=== PATIENT | female | born 1995 | race Caucasian/White ===

== ENCOUNTER 2018-11-13 17:40 | Inpatient (IN) | payer BC ==
[2018-11-13] MEDS ORDERED: Nalbuphine* 10 MG/ML 1 ML VIAL IV ONE (18:52)
[2018-11-13] MEDS ORDERED: Dinoprostone* 10 MG VAG.SUPP VAGINAL STA (18:52)
[2018-11-13] MEDS ORDERED: Promethazine INJ(RESTRICTED)* 25 MG/ML 1 ML VIAL IV ONE (18:52)
[2018-11-13] MEDS ORDERED: Lidocaine 1%* 5 ML VIAL ONE (19:26)
--- NOTE | 2018-11-13 19:49 | PN ---
L&D Outpatient: Visit - Reproductive Information Estimated Due Date: 11/06/18 Gestational Age: 41 Weeks and 1 Days : 1 Para: 0 - Reason for Visit Visit Reason: IUP@41 weeks her for cervical ripening/induction of labor for postdates - Antepartal Records Antepartal Record: Reviewed, Complicated by: - Elevated BP - PEC labs and 24 hr urine WNL - Patient History Patient History Significant For: Migraine - menstrual Recurrent UTI Seasonal allergies Review of Systems CV Complaint: No Respiratory: Shortness of Breath: No Gastrointestinal: No Nausea/Vomiting, Normal Bowel Movement Genitourinary: No Dysuria, No Bleeding - bloody show, No Leaking Fluid Musculoskeletal: Back Pain, Contractions Neurological: No Headache, No Visual Changes Movement: Normal L&D Outpatient: Exam Vitals - Most Recent: Vital Signs: Temp Pulse Resp BP Pulse Ox 98.0 F 91 18 131/91 100 11/13/18 18:06 11/13/18 18:06 11/13/18 18:06 11/13/18 18:06 11/13/18 18:06 - Cervical Exam Cervical Exam: 1.5/80%/-1, vtx - Abdominal Exam Abdomen Exam: Non-Tender, Fundal Height Consistent with Dates - Membranes Membrane Status: Intact - Ultrasound/Biophysical Profile Ultrasound Status: Not Done EFM Findings - External Monitor Findings Baseline Heart Rate: 135 External Monitor Findings: Accelerations Present - prolonged accelerations , No Pattern of Variable or Late Decelerations, Variability Moderate Contractions: Irregular L&D Outpatient: Asses/Plan Assessment: IUP@41 weeks here for cervical ripening and an IOL for postdates GBS negative, O+ No evidence of metabolic acidemia Mild irregular contractions, with good resting tone IBOW, +bloody show BPs elevated 130s-140s/80s-90s (normal PEC labs 11/01/18) - Discharge Diagnosis Discharge Diagnosis: Supervision-Normal Preg, Post Dates Plan: Admit as Inpatient - Admit to inpatient for an induction of labor, Other - Plan: Cervidil overnight, nubain/phenergan as needed for pain, PEC labs
[2018-11-13 20:32] LABS: ABS Basophils 0.1 10^3/ul (0-0.2); ABS Eosinophils 0 10^3/ul (0-0.6); ABS Lymphocytes 1.7 10^3/ul (1.0-4.8); ABS Monocytes 0.5 10^3/ul (0-0.8); ABS Neutrophils 5.6 10^3/ul (1.5-7.7); ABS Nucleated RBC 0 10^3/ul; Eosinophil % 0.5 %; Hematocrit 32 % (35-47); Hemoglobin 10.6 g/dl (12.0-16.0); Mean Corpuscular HGB Conc 33 g/dl (31-36); Mean Corpuscular Hemoglobin 30 pg (27-31); Mean Corpuscular Volume 88 fL (80-97); Mean Platelet Volume 9.9 fL (7.4-10.4); Nucleated Red Blood Cells % 0.1; Platelet Count 211 10^3/ul (150-450); Red Blood Count 3.62 10^6/ul (4.00-5.40); Red Cell Distribution Width 14 % (10.5-15); White Blood Count 7.9 10^3/ul (3.5-10.8)
[2018-11-13 20:46] LABS: Albumin 3.7 g/dL (3.2-5.2); Albumin/Globulin Ratio 1.1 (1-3); BUN/Creatinine Ratio 13.4 (8-20); Calcium 8.9 mg/dL (8.6-10.3); EGFR Non-African American 109.1 (>60); Globulin 3.4 g/dL (2-4); Potassium 3.5 mmol/L (3.5-5.0); Total Bilirubin 0.3 mg/dL (0.2-1.0); Total Protein 7.1 g/dL (6.4-8.9); Uric Acid 4.9 mg/dL (2.3-6.6)
--- NOTE | 2018-11-14 02:15 | PN ---
Progress Note - Progress Note Date of Service: 11/14/18 Note: SOAP: S: Pt uncomfortable and breathing through contractions. Reports feeling very shaky. FOB sleeping at bedside O: 1.5/80%/-1, posterior Baseline 125, +accels, no decels, moderate variability ctx 2-4 Pt visibly shaking IBOW A: IUP@41+1 for cervical ripening/IOL for postdates VE unchanged No evidence of metabolic acidemia coupling/tripling, contractions >2mins P: Cervidil removed. Pt to take warm bath VE PRN Anticipate progression to active labor and
[2018-11-14] MEDS ORDERED: Nalbuphine* 10 MG/ML 1 ML VIAL IV PRN (05:31)
[2018-11-14] MEDS ORDERED: Promethazine INJ(RESTRICTED)* 25 MG/ML 1 ML VIAL IV PRN (05:32)
[2018-11-14] MEDS ORDERED: Lactated Ringers 1000 ML Bag* 1,000 ML IV ONE ×2 (07:18→12:00)
[2018-11-14] MEDS ORDERED: Buffered Lidocaine 1% SYRIN* 1 ML/SYRINGE INTRADERM ONE (07:18)
--- NOTE | 2018-11-14 07:25 | HP ---
General Information - Reason for Visit IUP@41+1 admitted for induction of labor - General Information Maternal Age: 23 Grav: 1 Para: 0 SAB: 0 IEA: 0 Estimated Due Date: 11/06/18 Determined By: LMP Gestational Age in Weeks/Days: 41+1 Maternal Blood Type and Rh: O Positive - Results this Serology/RPR Result: Non-Reactive Rubella Result: Immune HBsAg Result: Negative HIV Result: Negative GBS Culture Result: Negative Past Medical History Pertinent Past Medical History: See Records - Migraine (menstrual), Recurrent UTI Pertinent Past Surgical History: See Records - Bunionectomies Pertinent Family History: See Records - Father: RA; Mother: HTN Review of Systems Constitutional: Uncomfortable CV Complaint: No Respiratory: Shortness of Breath: No Gastrointestinal: No Nausea/Vomiting, Normal Bowel Movement Genitourinary: Bleeding - bloody show, No Dysuria, No Leaking Fluid Musculoskeletal: No Complaint, No Epigastric Pain, Contractions Neurological: No Headache, No Visual Changes Movement: Normal Exam Allergies/Adverse Reactions: Allergies banana Allergy (Verified 11/14/18 05:44) Swelling sulfamethoxazole [From Bactrim] Adverse Reaction (Verified 11/14/18 05:44) See Comment PHOTODERMATITIS PER MOTHER: "she got redder in her eczema areas" trimethoprim [From Bactrim] Adverse Reaction (Verified 11/14/18 05:44) See Comment PHOTODERMATITIS PER MOTHER: "she got redder in her eczema areas" ENVIRONMENTAL/SEASONAL HAYFEVER Allergy (Uncoded 02/10/16 10:23) ITCHY WATERY EYES, CONGESTION, SNEEZING Vital Signs 11/13/18 18:06 Temperature 98.0 F Pulse Rate 91 Respiratory 18 Rate Blood Pressure 131/91 (mmHg) O2 Sat by Pulse 100 Oximetry Lab Values - Entire Visit: Laboratory Tests 11/13/18 11/13/18 11/13/18 19:44 19:44 19:44 WBC RBC Hgb Hct MCV MCH MCHC RDW Plt Count MPV Neut % (Auto) Lymph % (Auto) [place] % (Auto) Eos % (Auto) Baso % (Auto) Absolute Neuts (auto) Absolute Lymphs (auto) Absolute Monos (auto) Absolute Eos (auto) Absolute Basos (auto) Absolute Nucleated RBC Nucleated RBC % Sodium 135 Potassium 3.5 Chloride 105 Carbon Dioxide 20 L Anion Gap 10 BUN 9 Creatinine 0.67 0.65 Est GFR ( Amer) 132.0 Est GFR (Non-Af Amer) 109.1 BUN/Creatinine Ratio 13.4 Glucose 99 Uric Acid 4.9 Calcium 8.9 Total Bilirubin 0.30 AST 24 ALT 10 Alkaline Phosphatase 116 H Total Protein 7.1 Albumin 3.7 Globulin 3.4 Albumin/Globulin Ratio 1.1 Urine Collection Time 24 Blood Type O Positive Antibody Screen Negative 11/13/18 19:44 WBC 7.9 RBC 3.62 L Hgb 10.6 L Hct 32 L MCV 88 MCH 30 MCHC 33 RDW 14 Plt Count 211 MPV 9.9 Neut % (Auto) 71.1 Lymph % (Auto) 21.0 [place] % (Auto) 6.6 Eos % (Auto) 0.5 Baso % (Auto) 0.8 Absolute Neuts (auto) 5.6 Absolute Lymphs (auto) 1.7 Absolute Monos (auto) 0.5 Absolute Eos (auto) 0 Absolute Basos (auto) 0.1 Absolute Nucleated RBC 0 Nucleated RBC % 0.1 Sodium Potassium Chloride Carbon Dioxide Anion Gap BUN Creatinine Est GFR ( Amer) Est GFR (Non-Af Amer) BUN/Creatinine Ratio Glucose Uric Acid Calcium Total Bilirubin AST ALT Alkaline Phosphatase Total Protein Albumin Globulin Albumin/Globulin Ratio Urine Collection Time Blood Type Antibody Screen - Measurements Height: 5 ft 5 in Weight: 190 lb Weight in lbs: [phone] Body Mass Index (BMI): 31.6 Pre- Weight: 150 lb Weight Gained This : 40 lbs and 0 ozs - Exam Breast: Breast Exam Deferred CVA: No CVA Tenderness Extremities: No Edema Heart: Normal Rhythm/Heart Sounds HEENT: No Significant Findings Lungs: Clear Bilaterally Rectal: Rectal Exam Deferred Reflexes: DTR 2+ Thyroid: No Thyromegaly - Abdominal Exam Abdomen Exam: Non-Tender - 40lbs weight gain; EFW by carlos ~8+ lbs - Ultrasound/Biophysical Profile Ultrasound Status: Not Done Targeted Exam Findings Estimated Weight: by carlos 8+ lbs Cervical Exam: 1cm, 2cm Effacement: Thin, 80% Station: -1 Presenting Part: Vertex Membrane Status: Intact Bleeding/Discharge: Bloody Show EFM Findings - External Monitor Findings Baseline Heart Rate: 135 External Monitor Findings: Accelerations Present, No Pattern of Variable or Late Decelerations, Variability Moderate, Baseline Stable Contractions: Irregular - q1.5-5 mins, 45-90 Seconds, >90 Seconds Assessment/Plan - Assessment , IUP@41+1 IOL for postdates GBS negative; O+ 1.5/80%/-1, vtx, posterior No evidence of metabolic acidemia Contractions palpate mild to moderate, good resting tone Initial BPs elevated, PEC labs WNL IBOW - Obstetrical Risk Factors Obstetrical Risk Factors: Post-Dates - Plan Plan: Induction, Admit - Anticipate Vaginal Delivery - Date/Time of Admission Date of Admission: 11/14/18 Time of Admission: 07:30
--- NOTE | 2018-11-14 08:42 | PN ---
Progress Note - Progress Note Date of Service: 11/14/18 Note: Slept a little after medication. contractions every 3-5 minutes Cervix: 4-5 cm/100%, vtx -1, bulging membranes FHTs: baseline 135, accels present, mod variability. Cat 1 Wants epidural when more uncomfortable Will observe for now, consider AROM or pitocin augmentation
[2018-11-14] MEDS ORDERED: OBEPIDURAL* 250 ML EPIDURAL ONE (11:23)
--- NOTE | 2018-11-14 11:26 | PN ---
Progress Note - Progress Note Date of Service: 11/14/18 Note: uncomfortable, requesting epidural Cervix: 6cm/100%, vtx 0/-1. Dr Garcia called, will do epidural
[2018-11-14] MEDS ORDERED: Sodium Citrate/Citric Acid* 15 ML UDC PO PRN (12:00)
[2018-11-14] MEDS ORDERED: Lactated Ringers 1000 ML Bag* 1,000 ML IV SCH (12:00)
[2018-11-14] MEDS ORDERED: Famotidine TAB* 20 MG PO PRN (12:00)
[2018-11-14] MEDS ORDERED: Phenylephrine IV* 40 MCG/ML 10 ML SYRINGE IV PUSH PRN ×2 (12:00)
[2018-11-14] MEDS ORDERED: EPHEDrine (Pressors)* 50 MG/ML VIAL IV PUSH PRN ×2 (12:00)
[2018-11-14] MEDS: OBEPIDURAL* 250 ML EPIDURAL SCH (12:16)
--- NOTE | 2018-11-14 13:42 | PN ---
Progress Note - Progress Note Date of Service: 11/14/18 Note: comfortable after epidural Contractions every 5 minutes FHT remains category 1 Cervix: 7-8cm/100%, vtx -1 AROM at 1335--clear fluid Will augment with pitocin prn
--- NOTE | 2018-11-14 17:08 | PN ---
Progress Note - Progress Note Date of Service: 11/14/18 Note: Has not needed pitocin. Contractions every 3-4 min Cervix: 9 cm with thicker anterior portion, 0 station Continues to make progress
[2018-11-14] MEDS ORDERED: Oxytocin in LR* 20 UNITS/1,000 ML BAG IVPB ONE (17:22)
[2018-11-14] MEDS: Oxytocin in LR* 20 UNITS/1,000 ML BAG IVPB SCH (17:28)
[2018-11-14] MEDS ORDERED: Acetaminophen TAB* 325 MG PO ONE (17:36)
[2018-11-14] MEDS ORDERED: Acetaminophen TAB* 325 MG ONE (17:38)
[2018-11-14] MEDS: Lactated Ringers 1000 ML Bag* 1,000 ML IV SCH ×3 (19:23→23:22)
--- NOTE | 2018-11-14 20:35 | PN ---
Progress Note - Progress Note Date of Service: 11/14/18 Note: Low dose pitocin started after last exam. Feeling pressure. Cervix: fully, vtx +2 Coached on pushing, may need to labor down
--- NOTE | 2018-11-14 21:06 | PN ---
Progress Note - Progress Note Date of Service: 11/14/18 Note: Pushing since 2024. FHT baseline now 180, with decreased variability. Afebrile. Dr. Donovan called, coming to evaluate. Will continue pushing.
--- NOTE | 2018-11-14 22:47 | PN ---
Progress Note - Progress Note Date of Service: 11/14/18 Note: CTSP, induction at 41 wks, now pushing for about 2 hours. FHR noted to be persistently in the 160-180s with decreasing variability over the past hour. Exam: C/C/0 to +1 with pushing. Per CNM, minimal descent over the past hour despite good effort. Pt also examined during a push. Head palpates OA. Discussed concern for status developing over the past hour, especially without descent. At this point, I recommend a C/S. After discussion, pt and family agree. We discussed the risks of surgery at length including bleeding, hemorrhage, transfusion, infection, organ injury, DVT, hysterectomy, and even . All questions answered and consent signed.
[2018-11-14] MEDS ORDERED: ceFOXitin 2 GM IVPREMIX* 2 GM/50 ML BAG ONE (22:50)
[2018-11-14] MEDS ORDERED: ceFOXitin 2 GM IVPREMIX* 2 GM/50 ML BAG IVPB ONE (23:00)
[2018-11-14] MEDS ORDERED: Chloroprocaine 3%* 20 ML VIAL ONE (23:23)
[2018-11-14] MEDS ORDERED: fentaNYL* 50 MCG/ML 2 ML VIAL (100 MCG VIAL) ONE (23:55)
[2018-11-15] MEDS ORDERED: Morphine PF AMP (0.5MG/ML)* 5 MG/10 ML AMP ONE (00:08)
[2018-11-15] MEDS ORDERED: Phenylephrine IV* 40 MCG/ML 10 ML SYRINGE ONE (00:12)
[2018-11-15] MEDS ORDERED: EPHEDrine (Pressors)* 50 MG/ML VIAL ONE (00:16)
[2018-11-15] MEDS ORDERED: Scopolamine 1.5 mg* PATCH ONE (00:18)
[2018-11-15] MEDS ORDERED: fentaNYL* 50 MCG/ML 2 ML VIAL (100 MCG VIAL) IV PRN (00:25)
[2018-11-15] MEDS ORDERED: Naloxone* 0.4 MG/ML 1 ML VIAL IV PRN ×2 (00:25→00:28)
[2018-11-15] MEDS ORDERED: oxyCODONE TAB* 5 MG TAB PO PRN ×2 (00:25→00:28)
[2018-11-15] MEDS ORDERED: PROCHLORPERAZINE INJ 5 MG/ML 2 ML VIAL IV PRN ×2 (00:25→00:28)
[2018-11-15] MEDS ORDERED: Ketorolac INJ* 30 MG/ML 1 ML VIAL IV PRN (00:25)
[2018-11-15] MEDS ORDERED: Acetaminophen IV 1GM/100ML * 1,000 MG/100 ML VIAL IVPB ONE (00:25)
[2018-11-15] MEDS ORDERED: Nalbuphine* 10 MG/ML 1 ML VIAL IV PRN (00:28)
[2018-11-15] MEDS ORDERED: Ondansetron INJ* 2 MG/ML VIAL IV PRN (00:28)
[2018-11-15] MEDS ORDERED: Witch Hazel PAD* JAR TOPICAL PRN (00:56)
[2018-11-15] MEDS ORDERED: Dibucaine 1% 28.35 GM TUBE PR PRN (00:56)
[2018-11-15] MEDS ORDERED: Lactated Ringers 1000 ML Bag* 1,000 ML IV SCH (01:00)
[2018-11-15] MEDS: Acetaminophen TAB* 325 MG PO SCH ×3 (01:13→16:59)
[2018-11-15] MEDS: Ketorolac INJ* 30 MG/ML 1 ML VIAL IV SCH ×4 (01:13→20:39)
[2018-11-15] MEDS: Lactated Ringers 1000 ML Bag* 1,000 ML IV SCH (01:49)
[2018-11-15] MEDS: Oxytocin in LR* 20 UNITS/1,000 ML BAG IVPB SCH ×2 (01:58→03:19)
[2018-11-15] MEDS ORDERED: Methylergonovine INJ* 0.2 MG/ML 1ML AMP IM ONE (03:06)
[2018-11-15] MEDS ORDERED: Methylergonovine INJ* 0.2 MG/ML 1ML AMP ONE (03:19)
[2018-11-15 07:03] LABS: Hematocrit 25 % (35-47); Hemoglobin 8.4 g/dl (12.0-16.0); Mean Corpuscular HGB Conc 34 g/dl (31-36); Mean Corpuscular Hemoglobin 30 pg (27-31); Mean Corpuscular Volume 88 fL (80-97); Mean Platelet Volume 9.3 fL (7.4-10.4); Platelet Count 155 10^3/ul (150-450); Red Blood Count 2.81 10^6/ul (4.00-5.40); Red Cell Distribution Width 15 % (10.5-15); White Blood Count 18.6 10^3/ul (3.5-10.8)
[2018-11-15 07:53] LABS: Immature Granulocytes 4 % (0-9); Lymphocytes % 2 %; Monocytes % 2 %; Neutrophil % 92 %
[2018-11-15 07:54] LABS: ABS Neutrophils 17.86 10^3/ul (1.5-7.7)
[2018-11-15] MEDS: Simethicone TAB* 80 MG TAB.CHEW PO SCH ×4 (08:11→21:05)
[2018-11-15] MEDS: Docusate CAP* 100 MG PO SCH ×3 (08:41→20:58)
[2018-11-15] MEDS: Ferrous Gluconate TAB* 324 MG TAB PO SCH ×2 (09:01→20:58)
--- NOTE | 2018-11-15 10:04 | OP ---
DATE OF OPERATION: 11/15/18 - ROOM #105 DATE OF : 95 SURGEON: Tanya Donovan MD [employer] ENGINEER: AALIYAH Tong ANESTHESIOLOGIST: Dr. Paz. ANESTHESIA: Epidural. PRE-OP DIAGNOSES: 41 weeks' gestation and arrest of descent with tachycardia. POST-OP DIAGNOSES: 41 weeks' gestation and arrest of descent with tachycardia. OPERATIVE PROCEDURE: Primary low transverse section with vacuum assist. ESTIMATED BLOOD LOSS: 900 cc. URINE OUTPUT: 200 cc. IV FLUIDS: 2000 cc lactated Ringer's. MATERIAL TO LAB: Cord blood. INDICATIONS: This patient was a 23-year-old 1, para 0, at 41 weeks' gestation induced for the last [id number]. The patient progressed to fully dilated and pushed for about 2 hours. Over the last hour, there has been minimal descent despite good effort and the heart racing was noted to become fairly tachycardic in the 160s to 180s with decreasing variability. Considering this, the patient was advised to have a section and she agreed. She was extensively counseled for the surgery and consent was signed. FINDINGS: Normal-appearing uterus, fallopian tubes, and ovaries. Delivery was productive of a 7 pound 12 ounce female with Apgars of 9 and 9. Time of delivery was 0002. COMPLICATIONS: Right lower uterine segment uterine laceration, which was an extension of the incision. DESCRIPTION OF PROCEDURE: The risks, benefits, and alternatives were described to the patient and informed consent was obtained. The patient was taken to the operating room with IV running where epidural anesthesia was induced and found to be adequate. The patient was prepped and draped in the normal sterile fashion in the dorsal supine position with leftward tilt. A Pfannenstiel skin incision was made with a scalpel and this was carried down to the underlying fascia sharply. The fascia was then scored in the midline with the scalpel. The incision was extended using Buitrago scissors. The rectus muscles were dissected off the rectus fascia using blunt and sharp dissection. The rectus muscles were in the midline bluntly. The peritoneum was also entered bluntly. A bladder blade was placed. A bladder flap was created sharply using Metzenbaum scissors. A low transverse uterine incision was made with the scalpel. This was carried down to the amniotic cavity which was productive of clear fluid. The incision was extended with blunt traction. The head was elevated to the level of the incision without difficulty and delivered through the incision. With fundal pressure, the shoulders and body delivered without difficulty. The had an excellent tone and cried immediately on delivery. The cord was doubly clamped and cut. The infant was then handed to the awaiting stone dresser. Cord blood was collected. The placenta then delivered with manual extraction. The uterus was then exteriorized and cleared of all clots and debris. Uterine incision was reapproximated using 0 Polysorb in a running-locked fashion. A second layer of imbricating sutures of 0 Polysorb was also placed with good hemostasis. The posterior cul-de-sac was irrigated with saline. The uterus was then returned to the abdomen, and the incision was reinspected and noted to be hemostatic. The peritoneum was closed with 2-0 chromic in a running fashion. The fascia was closed with 0 Polysorb in a running fashion. Subcutaneous tissues were reapproximated using 2-0 chromic and interrupted sutures. The skin was then closed with 4-0 Monocryl in a subcuticular stitch. Mastisol and Steri-Strips were placed over the incision which was then covered with a sterile bandage. The patient tolerated the procedure well. Sponge, lap, and needle counts were correct x2. [id number]/[facility] #: [id number] [facility] MEDICAL CENTERGalilea
[2018-11-15] MEDS ORDERED: oxyCODONE/Acetamin 5/325 MG* TAB PO PRN (17:00)
[2018-11-16] MEDS ORDERED: Acetaminophen TAB* 325 MG PO PRN (01:00)
[2018-11-16] MEDS: Ibuprofen TAB* 600 MG PO PRN ×3 (03:12→18:51)
[2018-11-16] MEDS: oxyCODONE/Acetamin 5/325 MG* TAB PO PRN ×4 (05:46→18:51)
[2018-11-16] MEDS: Docusate CAP* 100 MG PO SCH ×3 (09:03→20:46)
[2018-11-16] MEDS: Ferrous Gluconate TAB* 324 MG TAB PO SCH ×2 (09:03→20:46)
[2018-11-16] MEDS: Simethicone TAB* 80 MG TAB.CHEW PO SCH ×4 (09:03→20:46)
[2018-11-17] MEDS: Ibuprofen TAB* 600 MG PO PRN ×4 (00:50→21:43)
[2018-11-17] MEDS: oxyCODONE/Acetamin 5/325 MG* TAB PO PRN ×3 (00:50→20:19)
[2018-11-17] MEDS: Docusate CAP* 100 MG PO SCH ×3 (08:29→21:01)
[2018-11-17] MEDS: Ferrous Gluconate TAB* 324 MG TAB PO SCH ×2 (08:29→21:01)
[2018-11-17] MEDS: Simethicone TAB* 80 MG TAB.CHEW PO SCH ×4 (08:30→21:01)
[2018-11-18] MEDS: Ibuprofen TAB* 600 MG PO PRN ×2 (03:43→12:20)
[2018-11-18] MEDS: OBEPIDURAL* 250 ML EPIDURAL SCH ×2 (07:57→08:01)
[2018-11-18] MEDS: Docusate CAP* 100 MG PO SCH (09:03)
[2018-11-18] MEDS: Simethicone TAB* 80 MG TAB.CHEW PO SCH ×2 (09:03→12:20)
[2018-11-18] MEDS: Ferrous Gluconate TAB* 324 MG TAB PO SCH (09:04)
[2018-11-18 09:10] VITALS: BP 130/85
== END 2018-11-18 13:25 | disposition home or self-care (01) | DRG 540 ==
LOC: MCHOBOUT 17:40 → MCHOB 11-14 07:19
PROVIDERS: ADMIT Advanced Practice Midwife; ATTEND Obstetrics & Gynecology
PROC: 10D00Z1 Extraction of Products of Conception, Low, Open Approach (ICD-10-PCS; principal; 2018-11-15)
PROC: 3E033VJ Introduction of Other Hormone into Peripheral Vein, Percutaneous Approach (ICD-10-PCS; 2018-11-15)
PROC: 10907ZC Drainage of Amniotic Fluid, Therapeutic from Products of Conception, Via Natural or Artificial Opening (ICD-10-PCS; 2018-11-15)
DX: O32.4XX0 Maternal care for high head at term, not applicable or unspecified (principal); O75.2 Pyrexia during labor, not elsewhere classified; O48.0 Post-term pregnancy; O76 Abnormality in fetal heart rate and rhythm complicating labor and delivery; O90.81 Anemia of the puerperium; D64.9 Anemia, unspecified; Z3A.41 41 weeks gestation of pregnancy; Z37.0 Single live birth
CPT/HCPCS: 36415; 59200; 80053; 82575; 84550; 85025; 86850; 86900; 86901; A9270-GY; J0694; J1885; J2210; J2300; J2400; J2550; J3010